=== PATIENT | female | born 1960 | race Caucasian/White ===

== ENCOUNTER 2016-11-04 18:43 | Emergency (ER) | payer OTHER | END 2016-11-04 20:10 | disposition home or self-care (01) | LOC: ER1 18:43 | DX: J10.1 Influenza due to other identified influenza virus with other respiratory manifestations (principal); Z85.42 Personal history of malignant neoplasm of other parts of uterus; Z79.84 Long term (current) use of oral hypoglycemic drugs; Z79.899 Other long term (current) drug therapy; Z88.5 Allergy status to narcotic agent; Z88.8 Allergy status to other drugs, medicaments and biological substances | CPT/HCPCS: 71020; 87081; 87880; 99283 ==

== ENCOUNTER → 2022-04-06 | Outpatient (CLI) | payer MEDICARE ==
[~2022-04-06] MED LIST: CLEOCIN HCL300 MG PO
== END ==
LOC: CT 13:44
DX: H53.123 Transient visual loss, bilateral (principal); G45.9 Transient cerebral ischemic attack, unspecified
CPT/HCPCS: 36415; 70496; 70498; 82565; 84520; Q9967